=== PATIENT | male | born 1960 | race African-American/Black ===

== ENCOUNTER 2021-04-10 14:46 | Observation (INO) ==
[2021-04-10] MEDS ORDERED: HYDROmorphone 2 MG/1 ML VIAL IV STA (15:24)
[2021-04-10] MEDS ORDERED: ONDANSETRON 4 MG/2 ML VIAL IV STA (15:24)
[2021-04-10] MEDS ORDERED: SODIUM CHLORIDE 0.9% 1,000 ML IV STA ×2 (15:24→17:12)
[2021-04-10 16:31] LABS: Basophils % 0.1 % (0.0-0.8); Hematocrit 37.2 VOL% (42.0-52.0); Hemoglobin 12.7 GM/DL (14.0-18.0); Immature Granulocytes % 0.2 %; Immature Granulocytes Absolute 0.02 #; Lymphocytes # 1.2 10*3/uL (1.4-4.0); Lymphocytes % 12.6 % (21.2-54.2); Mean Corpuscular HGB Conc 34.1 GM/DL (32-36); Mean Platelet Volume 9.8 FL (9.6-12.0); Monocytes % 9.4 % (1.7-12.7); Neutrophils % 77.7 % (38.7-73.9); Platelet Count 141 T/CUMM (130-400); Red Blood Count 3.61 MC/CUMM (3.8-5.5); Red Cell Distribution Width 12.7 % (9.3-17.3); White Blood Count 9.4 T/CUMM (4-12)
[2021-04-10 16:38] LABS: Bilirubin,Urine Negative (Negative); Blood, Urine Negative (Negative); Glucose,Urine (UA) Negative (Negative); Hyaline Casts,Urine 1 /LPF (0-3); Ketones,Urine Negative (Negative); Mucus,Urine Occasional /LPF (Occasional); Nitrite,Urine Negative (Negative); Protein,Urine Negative; RBC,Urine 2 /HPF (0-4); Squamous Epithelial Cell,Urine Occasional /HPF (0-10); Urine Appearance CLEAR (Clear); Urine Color Yellow (Yellow); Urine Urobilinogen < 2.0 EU/DL (0.2-1.0)
[2021-04-10 16:46] LABS: Albumin 3.7 G/DL (3.4-5.0); Bilirubin,Total 0.8 MG/DL (0.20-1.00); Calcium 9.7 MG/DL (8.5-10.1); Osmolality,Calculated 277.1 MOS/KG (273-304); Potassium 3.5 MMOL/L (3.5-5.1); Total Protein 7.9 G/DL (6.4-8.2)
[2021-04-10] MEDS ORDERED: GLUCAGON 1 MG VIAL IM PRN (17:26)
[2021-04-10] MEDS ORDERED: DEXTROSE 50% 25 GM/50 ML VIAL IV PRN (17:26)
[2021-04-10] MEDS ORDERED: ONDANSETRON 4 MG/2 ML VIAL IV PRN (17:26)
[2021-04-10] MEDS: MORPHINE 2 MG/1 ML SYRINGE IV PRN (20:37)
[2021-04-10] MEDS: PANTOPRAZOLE 40 MG VIAL IV SCH (22:01)
[2021-04-10] MEDS: ENOXAPARIN 40 MG/0.4 ML SYRINGE SUBCUT SCH (22:01)
[2021-04-10] MEDS: SODIUM CHLORIDE 0.9% 1,000 ML IV SCH (22:10)
[2021-04-10] MEDS ORDERED: GABAPENTIN 300 MG CAPSULE PO PRN (23:51)
[2021-04-10] MEDS ORDERED: ALBUTEROL 2.5 MG/3 ML NEB RESP TX PRN (23:51)
[2021-04-10] MEDS ORDERED: LORazepam 2 MG/1 ML VIAL IV PRN (23:52)
[2021-04-11] MEDS: MORPHINE 2 MG/1 ML SYRINGE IV PRN ×3 (01:51→16:03)
[2021-04-11 05:13] LABS: Basophils % 0.1 % (0.0-0.8); Eosinophils % 0.3 % (0.00-10.9); Hematocrit 36.7 VOL% (42.0-52.0); Hemoglobin 12.7 GM/DL (14.0-18.0); Immature Granulocytes % 0.4 %; Immature Granulocytes Absolute 0.04 #; Lymphocytes # 2.1 10*3/uL (1.4-4.0); Lymphocytes % 21.6 % (21.2-54.2); Mean Corpuscular HGB Conc 34.6 GM/DL (32-36); Mean Corpuscular Volume 104.6 FL (87-102); Mean Platelet Volume 10.4 FL (9.6-12.0); Monocytes % 10.8 % (1.7-12.7); NRBC # 0.02 10*3/uL; Neutrophils % 66.8 % (38.7-73.9); Platelet Count 128 T/CUMM (130-400); Red Blood Count 3.51 MC/CUMM (3.8-5.5); Red Cell Distribution Width 12.9 % (9.3-17.3); White Blood Count 9.7 T/CUMM (4-12)
[2021-04-11 05:51] LABS: Albumin 3.2 G/DL (3.4-5.0); Bilirubin,Total 1.3 MG/DL (0.20-1.00); Calcium 8.8 MG/DL (8.5-10.1); Osmolality,Calculated 274.8 MOS/KG (273-304); Potassium 3.8 MMOL/L (3.5-5.1); Total Protein 7.2 G/DL (6.4-8.2)
[2021-04-11] MEDS: PANTOPRAZOLE 40 MG VIAL IV SCH ×2 (08:23→20:52)
[2021-04-11] MEDS: SODIUM CHLORIDE 0.9% 1,000 ML IV SCH ×2 (08:29→17:07)
[2021-04-11 09:22] LABS: Risk Ratio 4.8; VLDL Cholesterol 49.6 MG/DL
[2021-04-11] MEDS: amLODIPine 5 MG TABLET PO SCH (10:38)
[2021-04-11] MEDS: LOSARTAN 50 MG TABLET PO SCH (10:38)
[2021-04-11] MEDS: CLOPIDOGREL 75 MG TABLET PO SCH (10:38)
[2021-04-11] MEDS: METOPROLOL TARTRATE 100 MG TABLET PO SCH ×2 (10:38→20:53)
[2021-04-11] MEDS: cilostazoL 50 MG TABLET PO SCH ×2 (10:39→20:54)
[2021-04-11] MEDS ORDERED: DEXTROSE 50% 25 GM/50 ML VIAL IV PRN (10:41)
[2021-04-11] MEDS: INSULIN LISPRO 100 UNIT/ML SUBCUT SCH ×3 (11:58→21:58)
[2021-04-11] MEDS: ENOXAPARIN 40 MG/0.4 ML SYRINGE SUBCUT SCH (20:53)
[2021-04-12] MEDS: SODIUM CHLORIDE 0.9% 1,000 ML IV SCH ×2 (01:08→08:54)
[2021-04-12] MEDS: MORPHINE 2 MG/1 ML SYRINGE IV PRN (05:37)
[2021-04-12 06:10] LABS: Albumin 2.5 G/DL (3.4-5.0); Bilirubin,Total 1.6 MG/DL (0.20-1.00); Calcium 7.9 MG/DL (8.5-10.1); Osmolality,Calculated 267.2 MOS/KG (273-304); Potassium 3.5 MMOL/L (3.5-5.1); Total Protein 6.3 G/DL (6.4-8.2)
[2021-04-12 06:17] LABS: Basophils % 0.2 % (0.0-0.8); Eosinophils # 0.2 10*3/uL (0.0-0.87); Hematocrit 31.1 VOL% (42.0-52.0); Hemoglobin 10.4 GM/DL (14.0-18.0); Immature Granulocytes % 0.3 %; Immature Granulocytes Absolute 0.03 #; Lymphocytes # 2.6 10*3/uL (1.4-4.0); Lymphocytes % 27.7 % (21.2-54.2); Mean Corpuscular HGB Conc 33.4 GM/DL (32-36); Mean Corpuscular Volume 104.7 FL (87-102); Mean Platelet Volume 11.2 FL (9.6-12.0); Monocytes % 10.8 % (1.7-12.7); Platelet Count 102 T/CUMM (130-400); Red Blood Count 2.97 MC/CUMM (3.8-5.5); Red Cell Distribution Width 12.9 % (9.3-17.3); White Blood Count 9.4 T/CUMM (4-12)
[2021-04-12] MEDS: cilostazoL 50 MG TABLET PO SCH (08:55)
[2021-04-12] MEDS: PANTOPRAZOLE 40 MG VIAL IV SCH (08:55)
[2021-04-12] MEDS: amLODIPine 5 MG TABLET PO SCH (08:56)
[2021-04-12] MEDS: METOPROLOL TARTRATE 100 MG TABLET PO SCH (08:56)
[2021-04-12] MEDS: LOSARTAN 50 MG TABLET PO SCH (08:56)
[2021-04-12] MEDS: CLOPIDOGREL 75 MG TABLET PO SCH (08:56)
[2021-04-12] MEDS: INSULIN LISPRO 100 UNIT/ML SUBCUT SCH ×2 (08:57→12:14)
[2021-04-12] MEDS ORDERED: MULTIVITAMIN (BEROCCA) TABLET PO SCH (09:00)
[2021-04-12 12:07] VITALS: BP 126/74
== END 2021-04-12 13:35 | disposition home or self-care (01) ==
LOC: EDUNIT# → EDBD → N.ED 14:46 → N.EDINP 14:46 → SUATTDRO 17:26 → N.5E 18:45
PROVIDERS: ADMIT Internal Medicine; ATTEND Internal Medicine